=== PATIENT | female | born 1980 | race Caucasian/White ===

== ENCOUNTER 2017-07-10 01:16 | Emergency (ER) | payer BC, OTHER ==
[~2017-07-10] VITALS: Ht 172.7 cm; Wt 85.5 kg
[2017-07-10] MEDS ORDERED: IV NORMAL SALINE 1,000ML 1,000 ML ONE (01:24)
[2017-07-10] MEDS ORDERED: IV NORMAL SALINE 1,000ML 1,000 ML IV SCH (01:41)
[2017-07-10] MEDS ORDERED: LORazepam 2 MG/ML VIAL IV ONE (01:45)
[2017-07-10] MEDS ORDERED: ONDANSETRON PF 4 MG/2 ML VIAL. IV ONE (01:45)
[2017-07-10] MEDS ORDERED: DICYCLOMINE 20 MG/2 ML AMPUL. IM ONE (01:45)
[2017-07-10 01:59] LABS: BASO # 0.1 x10^3/uL (0.0-0.2); BASO % 1 % (0-3); EOS # 0.5 x10^3/uL (0.0-0.7); EOS % 5 % (0-3); HEMATOCRIT 40.2 % (36.0-47.0); HEMOGLOBIN 13.8 g/dL (12.0-15.5); LYMPH # 2.3 x10^3/uL (1.0-4.8); LYMPH % 27 % (24-48); MEAN CORPUSCULAR HEMOGLOBIN 34 pg (25-35); MEAN CORPUSCULAR HGB CONC 35 g/dL (31-37); MEAN CORPUSCULAR VOLUME 97 fL (79-100); MONO # 1.2 x10^3/uL (0.0-1.1); MONO % 13 % (0-9); NEUT # 4.7 x10^3uL (1.8-7.7); NEUT % 54 % (31-73); PLATELET COUNT 223 x10^3/uL (140-400); RED BLOOD COUNT 4.13 x10^6/uL (3.50-5.40); RED CELL DISTRIBUTION WIDTH 12.9 % (11.5-14.5); WHITE BLOOD COUNT 8.7 x10^3/uL (4.0-11.0)
--- NOTE | 2017-07-10 02:01 | PHYS DOC ---
Past History Past Medical History: Seizure, Other Past Surgical History: Other Alcohol Use: None Drug Use: None Adult General Chief Complaint Chief Complaint: ABDOMINAL PAIN HPI HPI Patient is a 37 year old female who presents with complaint of abdominal pain. Patient was brought to the emergency department by a caregiver from [facility] after patient reportedly having multiple episodes of vomiting and loose stools. Patient also reportedly had 3 seizure episodes. The patient has history of intellectual disability, seizure disorder, and mood disorder. Patient is currently on Depakote for treatment of seizures and Trileptal for mood stabilizer. Patient has had no recorded fevers. The patient complains of pain "all over my tummy." Patient does not quantify her own pain, however based on the Facies chart, the patient is given an 8 out of 10 for her pain. No reports of bloody stools or blood in patient's vomit. Patient has been given her regular doses of medications. Review of Systems Review of Systems Constitutional: Denies fever or chills [] Eyes: Denies change in visual acuity, redness, or eye pain [] HENT: Denies nasal congestion or sore throat [] Respiratory: Denies cough or shortness of breath [] Cardiovascular: Denies chest pain or edema[] GI: Abdominal pain, nausea, vomiting, diarrhea[] : Denies dysuria or hematuria [] Musculoskeletal: Denies back pain or joint pain [] Integument: Denies rash or skin lesions [] Neurologic: Denies headache, focal weakness or sensory changes [] Current Medications Current Medications Current Medications Medications (Trade) Dose Ordered Sig/Karl Start Time Stop Time Status Last Admin Dose Admin Dicyclomine HCl (Bentyl) 10 mg 1X ONCE 07/10/17 01:45 07/10/17 01:46 UNV Lorazepam (Ativan) 1 mg 1X ONCE 07/10/17 01:45 07/10/17 01:46 UNV Ondansetron HCl (Zofran) 4 mg 1X ONCE 07/10/17 01:45 07/10/17 01:46 UNV Sodium Chloride 1,000 ml @ 1,000 mls/hr Q1H 07/10/17 01:41 07/10/17 02:40 UNV 07/10/17 01:41 1,000 MLS/HR Allergies Allergies Allergies Coded Allergies Type Severity Reaction Last Updated Verified codeine Allergy Mild 07/10/17 Yes Physical Exam Physical Exam Constitutional: Alert, afebrile, appears anxious and in moderate to severe discomfort. [] HENT: Normocephalic, atraumatic, bilateral external ears normal, oropharynx moist, no oral exudates, nose normal. [] Eyes: PERRLA, EOMI, conjunctiva normal, no discharge. [] Neck: Normal range of motion, no tenderness, supple, no stridor. [] Cardiovascular:Heart rate regular rhythm, no murmur [] Lungs & Thorax: Bilateral breath sounds clear to auscultation [] Abdomen: Bowel sounds normal, soft, diffusely tender in all 4 quadrants with no guarding or rebound tenderness, no masses, no pulsatile masses. [] Skin: Warm, dry, no erythema, no rash. [] Back: No tenderness, no CVA tenderness. [] Extremities: No tenderness, no cyanosis, no clubbing, ROM intact, no edema. [] Neurologic: Alert and oriented X 3, normal motor function, normal sensory function, no focal deficits noted. [] Current Patient Data Vital Signs Vital Signs Date Time Temp Pulse Resp B/P (MAP) Pulse Ox O2 Delivery O2 Flow Rate FiO2 07/10/17 01:20 98.4 78 28 95 Room Air EKG EKG Not performed[] Radiology/Procedures Radiology/Procedures 3 view acute abdominal series interpreted by me: No pulmonary infiltrates or effusions, no free air under the diaphragm, nonobstructive bowel gas pattern[] Course & Med Decision Making Course & Med Decision Making Pertinent Labs and Imaging studies reviewed. (See chart for details) The patient was given IV fluids, Zofran, Ativan, and Bentyl. On reevaluation, the patient's symptoms have improved. The patient's lab work showed a mildly decreased sodium level which I do not feel is well enough to invoke seizures. The patient's Depakote level was normal. Patient showed a small amount of white blood cells and bacteria in her urine, however there were also squamous cells. I believe that this is a contaminated sample and do not feel based off findings and patient has an active infection at this time. Urine culture was sent and results will be pending. Patient was given oral fluids in the emergency department which she was able to tolerate without difficulty. The patient's symptoms are likely due to viral gastroenteritis. The patient is also displaying evidence of decompensated behavioral disorder which has responded well to Ativan therapy. The patient will be discharged with prescription for Zofran with recommended follow-up in 3 days with the patient's primary doctor for reevaluation. Advised return emergency department for any worsening symptoms. 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 Dragon Disclaimer Dragon Disclaimer This chart was dictated in whole or in part using Voice Recognition software in a busy, high-work load, and often noisy Emergency Department environment. It may contain unintended and wholly unrecognized errors or omissions. Departure Departure: Impression: Primary Impression: Abdominal pain Additional Impressions: Seizure disorder Nausea and vomiting Diarrhea Disposition: HOME, SELF-CARE Condition: IMPROVED Referrals: WILLOW ARROYO MD (PCP) Patient Instructions: Abdominal Pain (Nonspecific), Diarrhea, Nausea and Vomiting, Seizure, Adult Additional Instructions: Follow-up with your primary doctor in 3 days. Return to the emergency department for any worsening symptoms. Scripts Ondansetron (ZOFRAN ODT) 4 Mg Tab.rapdis 1 TAB SL Q6HRS Y for NAUSEA/VOMITING, #15 TAB Prov: MATHEUS RANDHAWA MD 07/10/17 Problem Qualifiers Primary Impression: Abdominal pain Abdominal location: generalized Qualified Codes: R10.84 - Generalized abdominal pain Additional Impressions: Nausea and vomiting Vomiting type: unspecified Vomiting Intractability: non-intractable Qualified Codes: R11.2 - Nausea with vomiting, unspecified Diarrhea Diarrhea type: presumed infectious Qualified Codes: A09 - Infectious gastroenteritis and colitis, unspecified MATHEUS RANDHAWA MD Jul 10, 2017 02:01
[2017-07-10 02:07] LABS: ALBUMIN 3.5 g/dL (3.4-5.0); ALBUMIN/GLOBULIN RATIO 1.1 (1.0-1.7); ALK PHOS 70 U/L (46-116); ALT (SGPT) 17 U/L (14-59); ANION GAP 7 (6-14); AST (SGOT) 18 U/L (15-37); BLOOD UREA NITROGEN 9 mg/dL (7-20); BUN/CREATININE RATIO 23 (6-20); CALCIUM 9.2 mg/dL (8.5-10.1); CARBON DIOXIDE 28 mmol/L (21-32); CHLORIDE 95 mmol/L (98-107); CREATININE 0.4 mg/dL (0.6-1.0); GFR 178.6; GLUCOSE 124 mg/dL (70-99); LIPASE 124 U/L (73-393); POTASSIUM 4.5 mmol/L (3.5-5.1); SODIUM 130 mmol/L (136-145); TOTAL BILIRUBIN 0.3 mg/dL (0.2-1.0); TOTAL PROTEIN 6.8 g/dL (6.4-8.2)
[2017-07-10 02:08] LABS: VAL ACID 93 mcg/mL (50-100)
[2017-07-10 02:45] VITALS: BP 113/81
[2017-07-10 02:56] LABS: BILIRUBIN,URINE NEG (NEG); CLARITY,URINE CLEAR; COLOR,URINE YELLOW; GLUCOSE,URINE NEG (NEG)
[2017-07-10 02:57] LABS: NITRITE,URINE NEG (NEG); UROBILINOGEN,URINE 0.2 mg/dL (0.2 mg/dL)
[2017-07-10 03:03] LABS: BACTERIA,URINE FEW /HPF (0-FEW); SQUAMOUS EPITHELIAL CELL,UR OCC /LPF
[2017-07-10] MEDS ORDERED: ONDA4TAB10 SL (03:06)
--- NOTE | 2017-07-10 07:57 | RAD ---
Examination: Acute abdomen series History: History of upper abdominal pain Comparison: None available Findings: Low lung volumes and technique accentuate heart size and pulmonary vascularity. A stimulator generator projects over the left chest wall. There is no acute infiltrate or visualized pneumothorax. No evidence of free air noted under the hemidiaphragms. Cholecystectomy clips identified. The bowel gas pattern appears unremarkable. There is a 1.2 cm calcification projecting in the medial aspect of the right renal shadow likely calculus. Impression: 1. 1.2 cm calcification projecting in the right renal shadow probably a calculus. 2. The cardiomediastinal silhouette grossly appears unremarkable.
== END 2017-07-10 03:12 | disposition home or self-care (01) ==
LOC: ER 01:16
DX: R10.84 Generalized abdominal pain (principal); R11.2 Nausea with vomiting, unspecified; A09 Infectious gastroenteritis and colitis, unspecified; G40.909 Epilepsy, unspecified, not intractable, without status epilepticus; Z88.5 Allergy status to narcotic agent
CPT/HCPCS: 36415; 74022; 80053; 80164; 81001; 81025; 83690; 85025; 87086; 96361; 96372; 96374; 96375; 99285; J0500; J2060; J2405; J7030

== ENCOUNTER → 2017-07-14 | Outpatient (CLI) | payer BC, OTHER ==
[2017-07-10 02:45] VITALS: BP 113/81
[~2017-07-14] MED LIST: ONDA4TAB10 SL
--- NOTE | 2017-07-14 14:48 | RAD ---
CT of the abdomen and pelvis without contrast, 07/14/2017: History: Right flank pain Noncontrast scans were obtained utilizing the renal stone protocol. This is a limited study for evaluation of the possibility of urinary tract calculi. No intrarenal calculi are identified. The renal collecting systems and ureters are not dilated. No ureteral calculus is evident. The partially filled urinary bladder is unremarkable. The unopacified liver shows no abnormality. The gallbladder is surgically absent. No pancreatic abnormality is seen. The spleen is of normal size. The abdominal aorta is unremarkable. No abdominal or pelvic adenopathy is seen. There is a 17 mm left ovarian cyst. The uterus and ovaries are otherwise unremarkable. There is a moderate amount of stool in the colon. The appendix is visualized and shows no abnormality. The small bowel loops are unremarkable. There is a moderate amount of retained food in the stomach. No free air or significant free fluid is evident in the abdomen or pelvis. IMPRESSION: No urinary tract calculi are identified. PQRS Compliance Statement: One or more of the following individualized dose reduction techniques were utilized for this examination: 1. Automated exposure control 2. Adjustment of the mA and/or kV according to patient size 3. Use of iterative reconstruction technique
== END | disposition home or self-care (01) ==
LOC: DXRAD 14:15
PROVIDERS: ATTEND Nurse Practitioner Family
DX: N83.202 Unspecified ovarian cyst, left side (principal); Z90.49 Acquired absence of other specified parts of digestive tract
CPT/HCPCS: 74176

== ENCOUNTER 2019-03-07 08:55 | Emergency (ER) | payer BC, OTHER ==
[2019-03-07] MEDS ORDERED: ONDANSETRON PF 4 MG/2 ML VIAL. IV ONE (09:15)
[2019-03-07] MEDS ORDERED: IV NORMAL SALINE 1,000ML 1,000 ML IV ONE (09:15)
[2019-03-07 09:22] VITALS: BP 120/66
[2019-03-07 09:24] LABS: BASO % 1 % (0-3); EOS % 0 % (0-3); HEMATOCRIT 39.2 % (36.0-47.0); HEMOGLOBIN 13.7 g/dL (12.0-15.5); LYMPH # 1.4 x10^3/uL (1.0-4.8); LYMPH % 18 % (24-48); MEAN CORPUSCULAR HEMOGLOBIN 35 pg (25-35); MEAN CORPUSCULAR HGB CONC 35 g/dL (31-37); MEAN CORPUSCULAR VOLUME 101 fL (79-100); MONO # 0.6 x10^3/uL (0.0-1.1); MONO % 8 % (0-9); NEUT # 5.7 x10^3uL (1.8-7.7); NEUT % 73 % (31-73); PLATELET COUNT 211 x10^3/uL (140-400); RED BLOOD COUNT 3.89 x10^6/uL (3.50-5.40); RED CELL DISTRIBUTION WIDTH 12.6 % (11.5-14.5); WHITE BLOOD COUNT 7.8 x10^3/uL (4.0-11.0)
[2019-03-07] MEDS ORDERED: METOCLOPRAMIDE HCL 10 MG/2 ML VIAL. IV ONE (09:30)
[2019-03-07] MEDS ORDERED: diphenhydrAMINE 50 MG/ML VIAL IVP ONE (09:30)
[2019-03-07] MEDS ORDERED: KETOROLAC 30 MG/ML VIAL. IV ONE (09:30)
[2019-03-07 09:37] LABS: ALBUMIN 3.6 g/dL (3.4-5.0); CALCIUM 9.2 mg/dL (8.5-10.1); CREATININE 0.6 mg/dL (0.6-1.0); GFR 111.3; POTASSIUM 4.1 mmol/L (3.5-5.1); TOTAL BILIRUBIN 0.2 mg/dL (0.2-1.0); TOTAL PROTEIN 7.3 g/dL (6.4-8.2)
--- NOTE | 2019-03-07 10:01 | PHYS DOC ---
Past History Past Medical History: Seizure, Other Past Surgical History: Other Alcohol Use: None Drug Use: None Adult General Chief Complaint Chief Complaint: NAUSEA/VOMITING/DIARRHEA HPI HPI 38-year-old female presents with nausea, vomiting, and body aches. The patient has some diminished mental capacity as an accompanied by a telehealth nurse educator from the facility where she lives. The patient tells me that she started vomiting in the middle of the night. She also has diffuse body aches. She reports that she had a seizure sometime last night and lost balance bladder. Her telehealth nurse educator tells me th at she does have occasional breakthrough seizures. She is on medications and is monitored by neurology. She is reported to be acting normally this morning. The patient has not had a measured fever. She denies chills. She had been eating and drinking normally until this morning. She does not complain of any focal areas of pain. Review of Systems Review of Systems Constitutional: Denies fever or chills [] Eyes: Denies change in visual acuity, redness, or eye pain [] HENT: Denies nasal congestion or sore throat [] Respiratory: Denies cough or shortness of breath [] Cardiovascular: No additional information not addressed in HPI [] GI: Diffuse abdominal pain, nausea, vomiting. Denies bloody stools or diarrhea [] : Denies dysuria or hematuria [] Musculoskeletal: Denies back pain or joint pain [] Integument: Denies rash or skin lesions [] Neurologic: Mild headache. No focal weakness or sensory changes [] Endocrine: Denies polyuria or polydipsia [] All other systems were reviewed and found to be within normal limits, except as documented in this note. Current Medications Current Medications Current Medications Medications (Trade) Dose Ordered Sig/Karl Start Time Stop Time Status Last Admin Dose Admin Diphenhydramine HCl (Benadryl) 25 mg 1X ONCE 03/07/19 09:30 03/07/19 09:34 DC 03/07/19 09:35 25 MG Ketorolac Tromethamine (Toradol 30mg Vial) 30 mg 1X ONCE 03/07/19 09:30 03/07/19 09:34 DC 03/07/19 09:35 30 MG Metoclopramide HCl (Reglan Vial) 10 mg 1X ONCE 03/07/19 09:30 03/07/19 09:34 DC 03/07/19 09:35 10 MG Ondansetron HCl (Zofran) 4 mg 1X ONCE 03/07/19 09:15 03/07/19 09:16 DC 03/07/19 09:35 4 MG Sodium Chloride 1,000 ml @ 1,000 mls/hr 1X ONCE 03/07/19 09:15 03/07/19 10:14 03/07/19 09:34 1,000 MLS/HR Allergies Allergies Allergies Coded Allergies Type Severity Reaction Last Updated Verified codeine Allergy Mild 07/10/17 Yes Physical Exam Physical Exam Constitutional: Well developed, well nourished, no acute distress, non-toxic appearance. [] HENT: Normocephalic, atraumatic, bilateral external ears normal, oropharynx [address], no oral exudates, nose normal. [] Eyes: PERRLA, EOMI, conjunctiva normal, no discharge. [] Neck: Normal range of motion, no tenderness, supple, no stridor. [] Cardiovascular:Heart rate regular rhythm, no murmur [] Lungs & Thorax: Bilateral breath sounds clear to auscultation [] Abdomen: Bowel sounds normal, soft, no tenderness, no masses, no pulsatile masses. [] Skin: Warm, dry, no erythema, no rash. [] Back: No tenderness, no CVA tenderness. [] Extremities: No tenderness, no cyanosis, no clubbing, ROM intact, no edema. [] Neurologic: Alert and oriented X 3, normal motor function, normal sensory function, no focal deficits noted. [] Psychologic: Affect normal, judgement normal, mood normal. [] Current Patient Data Vital Signs Vital Signs Date Time Temp Pulse Resp B/P (MAP) Pulse Ox O2 Delivery O2 Flow Rate FiO2 03/07/19 09:22 98.3 83 22 100 Room Air Lab Results Laboratory Tests Test 03/07/19 09:14 White Blood Count 7.8 x10^3/uL (4.0-11.0) Red Blood Count 3.89 x10^6/uL (3.50-5.40) Hemoglobin 13.7 g/dL (12.0-15.5) Hematocrit 39.2 % (36.0-47.0) Mean Corpuscular Volume 101 fL (79-100) H Mean Corpuscular Hemoglobin 35 pg (25-35) Mean Corpuscular Hemoglobin Concent 35 g/dL (31-37) Red Cell Distribution Width 12.6 % (11.5-14.5) Platelet Count 211 x10^3/uL (140-400) Neutrophils (%) (Auto) 73 % (31-73) Lymphocytes (%) (Auto) 18 % (24-48) L Monocytes (%) (Auto) 8 % (0-9) Eosinophils (%) (Auto) 0 % (0-3) Basophils (%) (Auto) 1 % (0-3) Neutrophils # (Auto) 5.7 x10^3uL (1.8-7.7) Lymphocytes # (Auto) 1.4 x10^3/uL (1.0-4.8) Monocytes # (Auto) 0.6 x10^3/uL (0.0-1.1) Eosinophils # (Auto) 0.0 x10^3/uL (0.0-0.7) Basophils # (Auto) 0.0 x10^3/uL (0.0-0.2) Sodium Level 136 mmol/L (136-145) Potassium Level 4.1 mmol/L (3.5-5.1) Chloride Level 99 mmol/L (98-107) Carbon Dioxide Level 31 mmol/L (21-32) Anion Gap 6 (6-14) Blood Urea Nitrogen 19 mg/dL (7-20) Creatinine 0.6 mg/dL (0.6-1.0) Estimated GFR (Cockcroft-Gault) 111.3 BUN/Creatinine Ratio 32 (6-20) H Glucose Level 107 mg/dL (70-99) H Calcium Level 9.2 mg/dL (8.5-10.1) Total Bilirubin 0.2 mg/dL (0.2-1.0) Aspartate Amino Transferase (AST) 17 U/L (15-37) Alanine Aminotransferase (ALT) 16 U/L (14-59) Alkaline Phosphatase 65 U/L (46-116) Total Protein 7.3 g/dL (6.4-8.2) Albumin 3.6 g/dL (3.4-5.0) Albumin/Globulin Ratio 1.0 (1.0-1.7) EKG EKG [] Radiology/Procedures Radiology/Procedures [] Course & Med Decision Making Course & Med Decision Making Pertinent Labs and Imaging studies reviewed. (See chart for details) The patient's labs are unremarkable. Her urinalysis is unremarkable. I gave her 4 mg of Zofran and 1 L of normal saline for nausea and generalized aches. I additionally gave her 30 mg of Toradol, 25 mg of Benadryl, 10 mg of Reglan for her headache. She is feeling a bit better at this time. I believe this is a viral illness. She is stable for discharge. I will give her prescription for Zofran if needed. [] Dragon Disclaimer Dragon Disclaimer This electronic medical record was generated, in whole or in part, using a voice recognition dictation system. Departure Departure: Impression: Primary Impression: Seizure disorder Additional Impressions: Headache Viral syndrome Disposition: 01 HOME, SELF-CARE Condition: STABLE Referrals: WILLOW ARROYO MD (PCP) Patient Instructions: Nausea and Vomiting, [id number], Viral Syndrome Scripts Ondansetron (ONDANSETRON ODT) 4 Mg Tab.rapdis 1 TAB PO PRN Q6-8HRS PRN for VOMITING, #16 TAB Prov: ARABELLA BROWN DO 03/07/19 Problem Qualifiers Additional Impressions: Headache Headache type: other vascular headache Qualified Codes: G44.1 - Vascular headache, not elsewhere classified ARABELLA BROWN DO Mar 07, 2019 10:00
[2019-03-07 10:10] LABS: INFLUENZA A PATIENT NEGATIVE (NEGATIVE); INFLUENZA B PATIENT NEGATIVE (NEGATIVE)
[2019-03-07 10:55] LABS: BACTERIA,URINE 0 /HPF (0-FEW); BILIRUBIN,URINE NEG (NEG); CLARITY,URINE CLEAR; COLOR,URINE YELLOW; GLUCOSE,URINE NEG (NEG); NITRITE,URINE NEG (NEG); UROBILINOGEN,URINE 0.2 mg/dL (0.2 mg/dL)
[2019-03-07 10:56] LABS: SQUAMOUS EPITHELIAL CELL,UR FEW /LPF
[2019-03-07] MEDS ORDERED: ONDA4TAB12 PO (11:09)
== END 2019-03-07 11:30 | disposition home or self-care (01) ==
LOC: ER 08:55
DX: G40.909 Epilepsy, unspecified, not intractable, without status epilepticus (principal); G44.1 Vascular headache, not elsewhere classified; R11.2 Nausea with vomiting, unspecified; B34.9 Viral infection, unspecified; Z88.5 Allergy status to narcotic agent
CPT/HCPCS: 36415; 80053; 81001; 85025; 87086; 87804; 96361; 96374; 96375; 99284; J1200; J1885; J2405; J2765; J7030

== ENCOUNTER → 2020-12-30 | Outpatient (CLI) | payer OTHER, MEDICAID ==
[~2020-12-30] MED LIST changes: +ONDA4TAB12 PO
--- NOTE | 2020-12-31 09:41 | RAD ---
XR LT WRIST 3VIEWS History: Reason: WRIST PAIN / Spl. Instructions: / History: Comparison: None. Technique: 3 views of the left wrist Findings: Mildly comminuted fracture of the left distal radius with transverse component and vertical component extending to the radiolunate articular surface without articular surface cortical step-off identifie d. Minimally displaced ulnar styloid fracture. Minimal degenerative changes of the wrist and hand. No aggressive osseous or erosive process. Diffuse soft tissue swelling. Impression: 1. Minimally comminuted intra-articular fracture of the distal radius. 2. Minimally displaced ulnar styloid fracture. Electronically signed by: Gordo Corrigan MD (12/31/2020 9:38 AM) [facility]
== END ==
LOC: RAD 15:18
PROVIDERS: ATTEND Physician Assistant
DX: S52.572A Other intraarticular fracture of lower end of left radius, initial encounter for closed fracture (principal); S52.612A Displaced fracture of left ulna styloid process, initial encounter for closed fracture; X58.XXXA Exposure to other specified factors, initial encounter; Y93.89 Activity, other specified; Y92.89 Other specified places as the place of occurrence of the external cause; Y99.8 Other external cause status
CPT/HCPCS: 73110

== ENCOUNTER → 2021-01-03 | Outpatient (CLI) | payer OTHER, MEDICAID ==
--- NOTE | 2021-01-03 16:56 | RAD ---
EXAMINATION: XR HAND_LEFT 2 VIEWS CLINICAL HISTORY: Hand pain TECHNIQUE: XR HAND_LEFT 2 VIEWS Number of Images/Views: 2 COMPARISON: None FINDINGS: Overlying fiberglass cast limits evaluation. Distal radial metaphysis fracture with intra-articular extension. Presumed periosteal reaction along the dorsal and ulnar aspects of the distal radius with persistent radiolucency in the dorsal aspect o f the radial epiphysis. Questionable healing ulnar styloid fracture suboptimally evaluated. No additi onal fracture definitively visualized. IMPRESSION: Limited evaluation of suspected healing right distal radius fracture. Electronically signed by: Dhiraj Christian DO (01/03/2021 4:54 PM) [id number]
== END ==
LOC: DXRAD 11:39
PROVIDERS: ATTEND Physician Assistant
DX: S52.552A Other extraarticular fracture of lower end of left radius, initial encounter for closed fracture (principal); X58.XXXA Exposure to other specified factors, initial encounter; Y93.89 Activity, other specified; Y92.89 Other specified places as the place of occurrence of the external cause; Y99.8 Other external cause status
CPT/HCPCS: 73120

== ENCOUNTER 2021-01-28 16:24 | Emergency (ER) | payer MEDICARE, MEDICAID ==
[~2021-01-28] VITALS: Ht 172.7 cm; Wt 85.5 kg
[2021-01-28 16:47] VITALS: BP 104/76
[2021-01-28 19:11] LABS: CLARITY,URINE CLOUDY; COLOR,URINE ORANGE; RBC,URINE OCC /HPF (0-2)
[2021-01-28 19:12] LABS: BACTERIA,URINE MOD /HPF (0-FEW); SQUAMOUS EPITHELIAL CELL,UR OCC /LPF
--- NOTE | 2021-01-28 20:58 | PHYS DOC ---
Past History Past Medical History: Depression, Migraines, Seizure, Other (intellectual disability) Past Surgical History: Other Additional Past Surgical Histo: vagal nerve implant for seizures Alcohol Use: None Drug Use: None Adult General Chief Complaint Chief Complaint: MULTIPLE COMPLAINTS [facility] HPI Patient is a 40yo female presenting with aid for multiple complaints. Aid reports patient has intellectual delay and lives at [facility] where she receives 31/05 care. Aid states that patient "hasn't been acting like herself...she hasn't been sleeping well either". Patient denies any fever or pain, states she has had feelings that she has to urinate but produces less than usual that is discolored and malodorous. No changes in medication, no sick contacts, recent travel or trauma. Review of Systems Review of Systems Fourteen body systems of review of systems have been reviewed. See HPI for pertinent positives and negative responses, other pizarro all other systems are negative, non-pertinent or non-contributory Allergies Allergies Allergies Coded Allergies Type Severity Reaction Last Updated Verified Cephalosporins Allergy Intermediate 01/28/21 Yes erythromycin base Allergy Intermediate 01/28/21 Yes codeine Allergy Mild 01/28/21 Yes amoxicillin Allergy Unknown 01/28/21 Yes lamotrigine Allergy Unknown 01/28/21 Yes Physical Exam Physical Exam Constitutional: Well developed, well nourished, no acute distress, non-toxic appearance. HENT: Normocephalic, atraumatic, bilateral external ears normal, oropharynx moist, no oral exudates, nose normal. Eyes: PERRLA, EOMI, conjunctiva normal, no discharge. Neck: Normal range of motion, no tenderness, supple, no stridor. No meningeal signs Cardiovascular: Heart rate regular, sinus rhythm, no murmurs rubs or gallops Lungs & Thorax: Bilateral breath sounds clear to auscultation Abdomen: Bowel sounds normal, soft, no tenderness, no masses, no pulsatile masses. Nonsurgical abdomen, no peritoneal signs Skin: Warm, dry, no erythema, no rash. Back: No tenderness, no CVA tenderness. Extremities: No tenderness, no cyanosis, no clubbing, ROM intact, no edema. Neurologic: Alert and oriented X 3, grossly normal motor & sensory function, no focal deficits noted. Psychologic: Affect normal, mood normal, delayed verbal responses and difficulty at times with speech production which is baseline per aid Current Patient Data Vital Signs Vital Signs Date Time Temp Pulse Resp B/P (MAP) Pulse Ox O2 Delivery O2 Flow Rate FiO2 01/28/21 16:47 98.4 102 22 104/76 (85) 97 Lab Results Laboratory Tests Test 01/28/21 18:22 Urine Collection Type Unknown Urine Color [place] Urine Clarity Cloudy Urine pH Urine Specific [place] Urine Protein (NEG-TRACE) Urine Glucose (UA) mg/dL (NEG) Urine Ketones (Stick) mg/dL (NEG) Urine Blood (NEG) Urine Nitrite (NEG) Urine Bilirubin (NEG) Urine Urobilinogen Dipstick mg/dL (0.2 mg/dL) Urine Leukocyte Esterase (NEG) Urine RBC Occ /HPF (0-2) Urine WBC 11-20 /HPF (0-4) Urine Squamous Epithelial Cells Occ /LPF Urine Bacteria Mod /HPF (0-FEW) Urine Mucus Slight /LPF EKG EKG [] Radiology/Procedures Radiology/Procedures [] Heart Score C/O Chest Pain: N/A Risk Factors: Risk Factors: DM, Current or recent (<one month) smoker, HTN, HLP, family history of CAD, obesity. Risk Scores: Risk Factors: DM, Current or recent (<one month) smoker, HTN, HLP, family history of CAD, obesity. Course & Med Decision Making Course & Med Decision Making Afebrile and hemodynamically stable patient that is well-appearing presenting for UTI-like symptoms and sleep problems. Physical exam unremarkable. Urine appearance and UA concerning for infection. RX Macrobid Sleep aid wanting something for sleep, I stated I did not feel comfortable prescribing anything, recommended lifestyle/environmental changes and to wait until UTI is treated to address this with PCP who rounds at [facility]. Aid is angry at this response I discussed no further diagnostic workup indicated for well-appearing patient. She has good access to care with [facility] physician and can be seen in upcoming 24-48 hours. Strict return precautions discussed, all questions and concerns addressed prior to departure [place] Disclaimer [place] Disclaimer This electronic medical record was generated, in whole or in part, using a voice recognition dictation system. Departure Departure: Impression: Primary Impression: UTI (urinary tract infection) Disposition: 01 DC HOME SELF CARE/HOMELESS Condition: STABLE Referrals: WILLOW ARROYO MD (PCP) Patient Instructions: Urinary Tract Infection Additional Instructions: You were seen for a urinary tract infection. Please continue to take the antibiotics as prescribed. You should return to the ED if you develop worsening pain, fever, flank pain, or any other new or concerning symptoms. Follow up with primary care for further management if ongoing symptoms. Scripts Nitrofurantoin Monohyd/M-Cryst (MACROBID 100 MG CAPSULE) 100 Mg Capsule 1 CAP PO BID for uti for 5 Days, #9 CAP 0 Refills Prov: AVELINA WHELAN DO 01/28/21 AVELINA WHELAN DO Jan 28, 2021 20:58
[2021-01-28] MEDS ORDERED: NITROFURANTOIN MONOHYD/M-CRYST 100 MG CAPSULE. PO ONE (21:00)
[2021-01-28] MEDS ORDERED: NITR100C62 PO (21:03)
== END 2021-01-28 21:40 | disposition home or self-care (01) ==
LOC: ER 16:24
DX: N39.0 Urinary tract infection, site not specified (principal); R41.0 Disorientation, unspecified; F32.9 Major depressive disorder, single episode, unspecified; G43.909 Migraine, unspecified, not intractable, without status migrainosus; Z88.1 Allergy status to other antibiotic agents; Z88.5 Allergy status to narcotic agent; Z88.8 Allergy status to other drugs, medicaments and biological substances
CPT/HCPCS: 81001; 87086; 99283

== ENCOUNTER → 2021-01-31 | Outpatient (CLI) | payer MEDICARE, MEDICAID ==
[2021-01-28 16:47] VITALS: BP 104/76
[~2021-01-31] MED LIST changes: +NITR100C62 PO
--- NOTE | 2021-01-31 16:28 | RAD ---
XR LT WRIST 3VIEWS History: Left wrist fracture. Evaluate healing. Comparison: 12/30/2020 Technique: 3 views of the left wrist. FINDINGS/ IMPRESSION: Cast material limits visualization of detail. Redemonstrated comminuted intra-articular fracture of t he distal radial metaphysis. Fracture lucency more conspicuous than prior exam after interval remodel ing. Suggestion of progressive impaction at the dorsal aspect. Ulnar styloid fracture not well visual ized. Electronically signed by: Gordo Corrigan MD (01/31/2021 4:25 PM) [facility]
== END ==
LOC: RAD 10:01
PROVIDERS: ATTEND Specialist
DX: S62.102D Fracture of unspecified carpal bone, left wrist, subsequent encounter for fracture with routine healing (principal); X58.XXXD Exposure to other specified factors, subsequent encounter
CPT/HCPCS: 73110

== ENCOUNTER → 2021-07-29 | Outpatient (CLI) | payer MEDICARE, MEDICAID ==
--- NOTE | 2021-07-29 14:02 | RAD ---
EXAM: Renal sonogram. HISTORY: Cystitis. Hematuria. TECHNIQUE: Sonographic imaging of the kidneys and bladder was performed. COMPARISON: None. FINDINGS: The kidneys are normal in size. No solid or cystic renal lesion is seen. There is no hydron ephrosis. The prevoid bladder volume is 34 cc. The ureteral jets are not seen during the exam. The in ferior vena cava is patent. The aorta is normal in caliber. IMPRESSION: Sonographically unremarkable kidneys. Electronically signed by: Emiliana Sandoval MD (07/29/2021 9:54 AM) [facility]
== END ==
LOC: US 09:03
PROVIDERS: ATTEND Specialist
DX: N30.91 Cystitis, unspecified with hematuria (principal)
CPT/HCPCS: 76770